=== PATIENT | male | born 1995 | race Caucasian/White ===

== ENCOUNTER 2018-01-19 21:32 | Emergency (ER) | payer BC ==
[~2018-01-19] VITALS: Ht 170.2 cm; Wt 77.6 kg
[2018-01-19 21:50] VITALS: BP 130/56
[2018-01-19] MEDS ORDERED: ACETAMINOPHEN ES 500 MG TABLET ONE (22:27)
[2018-01-19] MEDS ORDERED: ACETAMINOPHEN 325 MG TABLET PO ONE (22:30)
[2018-01-19] MEDS ORDERED: IV NS 0.9% 1,000 ML BAG IV ONE (22:30)
== END 2018-01-20 00:10 | disposition home or self-care (01) ==
LOC: ER 21:32
DX: J02.9 Acute pharyngitis, unspecified (principal)
CPT/HCPCS: 71045-TC; 86403-TC; 87070-TC; A4606; J7030; Z7610

== ENCOUNTER 2018-01-24 15:34 | Emergency (ER) | payer BC ==
[~2018-01-24] VITALS: Ht 190.5 cm; Wt 72.6 kg
[2018-01-24] MEDS ORDERED: IV NS 0.9% 1,000 ML BAG IV ONE (16:00)
[2018-01-24] MEDS ORDERED: MORPHINE SULFATE INJ 2 MG/ML DISP.SYRIN IV ONE ×2 (16:00→17:30)
[2018-01-24] MEDS ORDERED: ONDANSETRON HCL/PF 4 MG/2 ML VIAL IVP ONE (16:00)
[2018-01-24 16:14] LABS: BASOPHILS # (AUTO) 0.4 /CMM (0.0-0.2); BASOPHILS % (AUTO) 3.8 % (0.0-2.0); EOSINOPHILS % (AUTO) 2.7 % (0.0-6.0); HEMATOCRIT 45 % (39-51); HEMOGLOBIN 15.5 g/dL (13.5-17.5); LYMPHOCYTES # (AUTO) 2.6 /CMM (0.8-4.8); LYMPHOCYTES % (AUTO) 22.3 % (20.0-44.0); MEAN CORPUSCULAR HGB CONC 34 g/dl (31.0-36.0); MEAN CORPUSCULAR VOLUME 88 fL (80-96); MONOCYTES # (AUTO) 0.7 /CMM (0.1-1.30); MONOCYTES % (AUTO) 6.3 % (2.0-12.0); NEUTROPHILS # (AUTO) 7.4 /CMM (1.8-8.9); NEUTROPHILS % (AUTO) 64.9 % (43.0-81.0); PLATELET COUNT (AUTO) 267 /CMM (150-450); RDW COEFFICIENT OF VARIATION 11.6 (11.5-15.0); RED BLOOD CELL COUNT(AUTO) 5.14 MIL/uL (4.5-6.0); WHITE BLOOD COUNT (AUTO) 11.4 K/uL (4.3-11.0)
[2018-01-24] MEDS ORDERED: MORPHINE SULFATE INJ 4 MG/ML DISP.SYRIN ONE ×2 (16:15→17:01)
[2018-01-24] MEDS ORDERED: ONDANSETRON HCL/PF 4 MG/2 ML VIAL ONE (16:15)
[2018-01-24 16:24] LABS: CALCIUM, SERUM 9.4 mg/dL (8.5-10.1); CREATININE 0.8 mg/dL (0.6-1.3); POTASSIUM 4.5 mmol/L (3.5-5.1)
[2018-01-24 16:28] LABS: INR 0.96 (0.85-1.15)
[2018-01-24 16:53] LABS: MONOTEST NEGATIVE (NEGATIVE)
[2018-01-24] MEDS ORDERED: HYDROMORPHONE 1 MG/1 ML DISP.SYRIN IV ONE (18:00)
[2018-01-24] MEDS ORDERED: HYDROMORPHONE INJ 2 MG/ML DISP.SYRIN ONE (18:04)
--- NOTE | 2018-01-24 18:25 | NUR ---
LUMBAR PUNCTURE PROCEDURE DONE AT .
[2018-01-24 19:35] LABS: CSF GLUCOSE 54 mg/dL (40-70); CSF PROTEIN 36.5 mg/dL (15-45)
[2018-01-24] MEDS ORDERED: KETOROLAC TROMETHAMINE INJ 30 MG/ML VIAL IV ONE (20:00)
[2018-01-24] MEDS ORDERED: KETOROLAC TROMETHAMINE INJ 30 MG/ML VIAL ONE (20:03)
[2018-01-24] MEDS ORDERED: PENICILLIN G BENZATHINE 2.4 MMU/4 ML ML IM ONE ×2 (20:41→21:00)
[2018-01-24 21:00] VITALS: BP 130/68
--- NOTE | 2018-01-24 21:00 | NUR ---
IV removed. Catheter intact and site benign. Pressure and 4x4 applied to site. No bleeding noted. Patient discharged to home in stable condition. Written and verbal after care instructions given. Patient verbalizes understanding of instruction. Patient is ambulatory with steady gait,, vss. nad noted. no further complaints.
== END 2018-01-24 21:01 | disposition home or self-care (01) ==
LOC: ER 15:35
DX: J03.90 Acute tonsillitis, unspecified (principal); J45.909 Unspecified asthma, uncomplicated; I25.2 Old myocardial infarction
CPT/HCPCS: 36415; 62270; 80048; 85025; 85730; 86308; 89051; 96361; 96372; 96374 ×2; 96375; 99285; A4606; A6402; J0558; J1170; J1885; J2270 ×2; J2405; J7030; Z7610